=== PATIENT | female | born 1980 | race Caucasian/White ===

== ENCOUNTER 2023-12-14 20:00 | Emergency (ER) | payer OTHER ==
[~2023-12-14] VITALS: Ht 154.9 cm; Wt 52.2 kg
[2023-12-15 00:40] VITALS: BP 127/85; TEMP 98.2; O2SAT 98
== END 2023-12-15 00:46 | disposition home or self-care (01) ==
LOC: ER 20:04
DX: S27.818A Other injury of esophagus (thoracic part), initial encounter (principal); M54.2 Cervicalgia; X58.XXXA Exposure to other specified factors, initial encounter; Y93.89 Activity, other specified; Y92.89 Other specified places as the place of occurrence of the external cause; Y99.8 Other external cause status
CPT/HCPCS: 70490; A4606; A4663